=== PATIENT | female | born 1975 | race Hispanic/Latino ===

== ENCOUNTER → 2019-05-24 | Day surgery (SDC) | payer BC ==
[2019-05-23 15:19] LABS: BASOPHILS % 0.5 % (0.0-1.0); EOSINOPHILS # (AUTO) 0.5 (0.0-0.4); EOSINOPHILS % 5.8 % (0.0-6.0); HEMATOCRIT 38.2 % (34.2-44.1); HEMOGLOBIN 12.2 g/dL (12.0-16.0); LYMPHOCYTES # (AUTO) 1.8 (1.0-3.2); LYMPHOCYTES % 20.7 % (18.0-39.1); MEAN CORPUSCULAR HEMOGLOBIN 26.9 pg (28-32); MEAN CORPUSCULAR HGB CONC 31.9 g/dL (31-35); MEAN CORPUSCULAR VOLUME 84.1 fL (81-99); MONOCYTES # (AUTO) 0.6 (0.2-0.8); MONOCYTES % 6.6 % (4.4-11.3); NEUTROPHILS # (AUTO) 5.6 (2.1-6.9); NEUTROPHILS % 66.2 % (38.7-80.0); PLATELET COUNT 354 x10e3/uL (140-360); RED BLOOD COUNT 4.54 x10e6/uL (3.6-5.1); RED CELL DISTRIBUTION WIDTH 13.2 % (11.7-14.4)
[2019-05-23 15:29] LABS: INR 0.92; PROTHROMBIN TIME 12.8 seconds (11.9-14.5)
[2019-05-23 15:30] LABS: PARTIAL THROMBOPLASTIN TIME 31.2 seconds (23.8-35.5)
[2019-05-23 15:38] LABS: ALANINE AMINOTRANSFERASE 9 IU/L (0-55); ALBUMIN/GLOBULIN RATIO 1.2 (0.8-2.0); ALKALINE PHOSPHATASE 73 IU/L (40-150); ANION GAP 15.6 mmol/L (8-16); BLOOD UREA NITROGEN 9 mg/dL (7-26); BUN/CREATININE RATIO 16 (6-25); CALCIUM 9.7 mg/dL (8.4-10.2); CARBON DIOXIDE 24 mmol/L (22-29); CHLORIDE 103 mmol/L (98-107); CREATININE, SERUM 0.58 mg/dL (0.57-1.11); EST GLOMERULAR FILTRATION RATE > 60 ML/MIN (60-); GLUCOSE 82 mg/dL (74-118); POTASSIUM 3.6 mmol/L (3.5-5.1); SODIUM 139 mmol/L (136-145)
[~2019-05-24] MED LIST: FENTANYL CITRATE/PF 100MCG/2 ML INJ ONE; GLUCAGON FOR INJ 1 MG VIAL ONE; HYOSCYAMINE 0.125 MG TAB ONE; LACTOSE; LIDOCAINE HCL 2% LOCAL INJ 5 ML SDV VIAL INJ ONE; METFORMIN HCL850 MG PO; MIDAZOLAM HCL 2 MG/2 ML VIAL ONE; PROPOFOL IV EMULSION 10 MG/ML 50 ML VIAL ONE; RIFAXIMIN; TRULICITY0.75 MG/0. SQ; Z.0.ALDACTONE50 MG; Z.0.LASIX20 MG; Z.0.PROTONIX40 MG; Z.0.PROZAC20 MG; Z.0.VITAMIN E1000 UN; [UNRECOGNIZED DRUG - OTHER]
--- OUTSIDE RECORDS SUMMARY | 2019-05-24 06:23 | XMS REPORT ---
Author [facility] Address Unknown Phone Unavailable Care Team Providers Care Bed And Breakfast Cook Name Role Phone Unavailable Unavailable Payers Payer Name Policy Type Policy Number Effective Date Expiration Date Problems This patient has no known problems. Allergies, Adverse Reactions, Alerts Allergy Name Allergy Type Status Severity Reaction(s) Onset Date Inactive Date Treating Clinician Comments levofloxacin DA Active SV 2017-04-23 00:00:00 nitrofurantoin DA Active U 2016-10-09 00:00:00 Medications This patient has no known medications. Encounters Start Date/Time End Date/Time Encounter Type Admission Type [facility]ending [facility] Facility Care Department Encounter ID 2019-03-08 08:57:00 2019-03-08 08:57:00 Emergency E [facility] [id number] 2018-09-25 18:33:00 2018-09-25 18:33:00 Emergency E [facility] MED [id number] 2018-08-07 22:32:00 2018-08-07 22:32:00 Emergency E [facility] [id number] 2018-02-14 00:00:00 2018-02-14 00:00:00 Outpatient [facility] [id number] 2018-02-10 00:00:00 2018-02-10 00:00:00 Outpatient [facility] [id number] 2018-02-10 00:00:00 2018-02-10 00:00:00 Outpatient [facility] [id number] 2018-02-10 00:00:00 2018-02-10 00:00:00 Outpatient [facility] [id number] 2018-02-06 00:00:00 2018-02-06 00:00:00 Outpatient [facility] [id number] 2018-01-09 00:00:00 2018-01-09 00:00:00 Outpatient [facility] [id number] 2017-12-29 00:00:00 2017-12-29 00:00:00 Outpatient [facility] [id number] 2017-12-29 00:00:00 2017-12-29 00:00:00 Outpatient [facility] [id number] 2017-12-28 00:00:00 2017-12-28 00:00:00 Outpatient [facility] [id number] 2017-12-14 00:00:00 2017-12-14 00:00:00 Outpatient [facility] [id number] 2017-11-25 00:00:00 2017-11-25 00:00:00 Outpatient [facility] [id number] 2017-11-16 13:11:28 2017-11-16 13:11:28 Outpatient [facility] [id number] 2017-11-16 13:11:05 2017-11-16 13:11:05 Outpatient [facility] [id number] 2017-11-16 13:10:42 2017-11-16 13:10:42 Outpatient [facility] [id number] 2017-11-10 00:00:00 2017-11-10 00:00:00 Outpatient [facility] [id number] 2017-11-08 15:14:02 2017-11-08 15:14:02 Outpatient [facility] [id number] 2017-11-08 13:58:49 2017-11-08 13:58:49 Outpatient [facility] [id number] 2017-10-28 00:00:00 2017-10-28 00:00:00 Outpatient [facility] [id number] 2017-10-27 00:00:00 2017-10-27 00:00:00 Outpatient [facility] [id number] 2017-10-19 08:58:08 2017-10-19 08:58:08 Outpatient [facility] [id number] 2017-10-11 07:58:05 2017-10-11 07:58:05 Outpatient [facility] [id number] 2017-10-07 00:00:00 2017-10-07 00:00:00 Outpatient [facility] [id number] 2017-10-03 00:00:00 2017-10-03 00:00:00 Outpatient [facility] [id number] 2017-09-30 00:00:00 2017-09-30 00:00:00 Outpatient [facility] [id number] 2017-09-30 00:00:00 2017-09-30 00:00:00 Outpatient [facility] [id number] 2017-09-16 00:00:00 2017-09-16 00:00:00 Outpatient [facility] [id number] 2017-09-08 00:00:00 2017-09-08 00:00:00 Outpatient [facility] [id number] 2017-08-24 00:00:00 2017-08-24 00:00:00 Outpatient [facility] [id number] 2017-08-12 13:11:29 2017-08-12 13:11:29 Outpatient [facility] [id number] 2017-08-05 08:40:18 2017-08-05 08:40:18 Outpatient [facility] [id number] 2017-08-05 08:40:12 2017-08-05 08:40:12 Outpatient [facility] [id number] 2017-08-04 14:40:29 2017-08-04 14:40:29 Outpatient [facility] [id number] 2017-07-20 00:00:00 2017-07-20 00:00:00 Outpatient [facility] [id number] 2017-07-19 14:40:27 2017-07-19 14:40:27 Outpatient [facility] [id number] 2017-07-14 09:49:26 2017-07-14 09:49:26 Outpatient [facility] [id number] 2017-07-04 08:38:42 2017-07-04 08:38:42 Outpatient [facility] [id number] 2017-06-27 00:00:00 2017-06-27 00:00:00 Outpatient [facility] [id number] 2017-05-26 14:39:22 2017-05-26 14:39:22 Outpatient [facility] [id number] 2017-05-10 00:00:00 2017-05-10 00:00:00 Outpatient [facility] [id number] 2017-05-04 13:13:03 2017-05-04 13:13:03 Outpatient [facility] [id number] 2017-03-11 14:24:53 2017-03-11 14:24:53 Outpatient [facility] [id number] 2017-03-07 00:00:00 2017-03-07 00:00:00 Outpatient [facility] [id number] 2017-03-04 00:00:00 2017-03-04 00:00:00 Outpatient [facility] [id number] 2017-03-03 08:00:13 2017-03-03 08:00:13 Outpatient [facility] [id number] 2017-02-25 14:52:03 2017-02-25 14:52:03 Outpatient [facility] [id number] 2017-02-17 00:00:00 2017-02-17 00:00:00 Outpatient [facility] [id number] 2017-02-04 08:28:51 2017-02-04 08:28:51 Outpatient [facility] [id number] 2017-02-04 08:28:47 2017-02-04 08:28:47 Outpatient [facility] [id number] 2017-02-03 07:46:06 2017-02-03 07:46:06 Outpatient [facility] [id number] 2017-01-20 09:40:42 2017-01-20 09:40:42 Outpatient [facility] [id number] 2017-01-20 00:00:00 2017-01-20 00:00:00 Outpatient [facility] [id number] 2017-01-07 00:00:00 2017-01-07 00:00:00 Outpatient [facility] [id number] Results Test Description Test Time Test Comments Text Results Atomic Results Result Comments ANTINUCLEAR ANTIBODIES TITER 2019-03-27 14:08:00 SHAE SCREEN (test code=ANASCR) Negative () Negative <1:80 Borderline 1:80 Positive >1:80Performed At: [facility] [address] [id number] Dwayne Maria MD Ph:[phone] ACUTE HEPATITIS [id number] 14:08:00* Test Item Value Reference Range Comments AB HEPATITIS A IGM (test code=HAVMAB) NON REACTIVE INDEX NON REACT. AG HEPATITIS B SURFACE (test code=HBSAG) NON REACTIVE INDEX NonReactive AB HEPATITIS B CORE IGM (test code=HBCMAB) NON REACTIVE INDEX NON REACT. AB HEPATITIS C (test code=HCVAB) NON REACTIVE INDEX NON REACT. AB [id number] 14:08:00* Test Item Value Reference Range Comments AB ANTI-MITOCHONDRIAL (test code=MITOAB) AB ANTI-SMOOTH [id number] 14:08:00* Test Item Value Reference Range Comments AB ANTI-SMOOTH MUSCLE (test code=SMOOTHAB) 5 Units 0-19 Negative 0 - 19 Weak positive 20 - 30 Moderate to strong positive >30 Actin Antibodies are found in 52-85% of patients with autoimmune hepatitis or chronic active hepatitis and in 22% of patients with primary biliary cirrhosis. ANTINUCLEAR ANTIBODIES [id number] 14:08:00* Test Item Value Reference Range Comments SHAE SCREEN (test code=ANASCR) Negative () Negative <1:80 Borderline 1:80 Positive >1:80Performed At: [facility] [address] [id number] Dwayne Maria MD Ph:[phone] ACUTE HEPATITIS [id number] 14:08:00* Test Item Value Reference Range Comments AB HEPATITIS A IGM (test code=HAVMAB) NON REACTIVE INDEX NON REACT. AG HEPATITIS B SURFACE (test code=HBSAG) NON REACTIVE INDEX NonReactive AB HEPATITIS B CORE IGM (test code=HBCMAB) NON REACTIVE INDEX NON REACT. AB HEPATITIS C (test code=HCVAB) NON REACTIVE INDEX NON REACT. AB [id number] 14:08:00* Test Item Value Reference Range Comments AB ANTI-MITOCHONDRIAL (test code=MITOAB) <20.0 Units 0.0-20.0 Negative 0.0 - 20.0 Equivocal 20.1 - 24.9 Positive >24.9Mitochondrial (M2) Antibodies are found in 90-96% ofpatients with primary biliary cirrhosis.Performed At: [facility] [id number] Robb MD Ph:[phone] AB ANTI-SMOOTH [id number] 14:08:00* Test Item Value Reference Range Comments AB ANTI-SMOOTH MUSCLE (test code=SMOOTHAB) 5 Units 0-19 Negative 0 - 19 Weak positive 20 - 30 Moderate to strong positive >30 Actin Antibodies are found in 52-85% of patients with autoimmune hepatitis or chronic active hepatitis and in 22% of patients with primary biliary cirrhosis. [id number] 12:07:00* Test Item Value Reference Range Comments CERULOPLASMIN (test code=CER) 43.9 mg/dL 19.0-39.0 Performed At: [facility] [id number] [facility] [address] [place], [place] [id number] CN MD Ph:[phone] ANTINUCLEAR ANTIBODIES [id number] 09:08:00* Test Item Value Reference Range Comments SHAE SCREEN (test code=ANASCR) Negative () Negative <1:80 Borderline 1:80 Positive >1:80Performed At: [facility] [address] [place] [id number] Dwayne Maria MD Ph:[phone] ACUTE HEPATITIS [id number] 09:08:00* Test Item Value Reference Range Comments AB HEPATITIS A IGM (test code=HAVMAB) NON REACTIVE INDEX NON REACT. AG HEPATITIS B SURFACE (test code=HBSAG) NON REACTIVE INDEX NonReactive AB HEPATITIS B CORE IGM (test code=HBCMAB) NON REACTIVE INDEX NON REACT. AB HEPATITIS C (test code=HCVAB) NON REACTIVE INDEX NON REACT. AB [id number] 09:08:00* Test Item Value Reference Range Comments AB ANTI-MITOCHONDRIAL (test code=MITOAB) AB ANTI-SMOOTH [id number] 09:08:00* Test Item Value Reference Range Comments AB ANTI-SMOOTH MUSCLE (test code=SMOOTHAB) [id number] 18:36:00* Test Item Value Reference Range Comments GLUBED (test code=GLUBED) 159 MG/DL 70-110 Performed by certified centrifuge separator operator at [facility] [id number] 18:36:00* Test Item Value Reference Range Comments GLUBED (test code=GLUBED) 165 MG/DL 70-110 Performed by certified centrifuge separator operator at [facility] BASIC METABOLIC [id number] 04:18:00* Test Item Value Reference Range Comments SODIUM (test code=NA) 135 mEq/L 134-147 POTASSIUM (test code=K) 3.6 mEq/L 3.4-5.0 CHLORIDE (test code=CL) 102 mEq/L 100-108 CARBON DIOXIDE (test code=CO2) 27 mEq/L 21-33 ANION GAP (test code=GAP) 10 0-20 GLUCOSE (test code=GLU) 151 mg/dL 70-110 BLOOD UREA NITROGEN (test code=BUN) 13 mg/dL 7-18 GLOMERULAR FILTRATION RATE (test code=GFR) 110.2 95-105 Units of measure=ml/min/1.73 m2 CREATININE (test code=CREAT) 0.6 mg/dL 0.6-1.3 CALCIUM (test code=CA) 9.1 mg/dL 8.0-10.5 CBC W/AUTO [id number] 04:09:00* Test Item Value Reference Range Comments WHITE BLOOD CELL (test code=WBC) 10.33 x10 3/uL 4.5-11.0 RED BLOOD CELL (test code=RBC) 4.57 x10 6/uL 3.54-5.02 HEMOGLOBIN (test code=HGB) 12.5 g/dL 11.0-15.0 HEMATOCRIT (test code=HCT) 39.8 % 33.0-45.0 MEAN CELL VOLUME (test code=MCV) 87.1 fL 81.0-99.0 MEAN CELL HGB (test code=MCH) 27.4 pg 27.0-33.0 MEAN CELL HGB CONCETRATION (test code=MCHC) 31.4 g/dL 33.0-37.0 RED CELL DISTRIBUTION WIDTH CV (test code=RDW) 12.7 % 11.5-14.5 RED CELL DISTRIBUTION WIDTH SD (test code=RDW-SD) 40.0 fL 37.0-54.0 PLATELET COUNT (test code=PLT) 465 x10 3/uL 150-400 MEAN PLATELET VOLUME (test code=MPV) 9.6 fL 7.0-9.0 NEUTROPHIL % (test code=NT%) 73.5 % 56.0-77.0 IMMATURE GRANULOCYTE % (test code=IG%) 0.3 % 0.0-2.0 LYMPHOCYTE % (test code=LY%) 13.3 % 14.0-32.0 MONOCYTE % (test code=MO%) 8.4 % 4.8-9.0 EOSINOPHIL % (test code=EO%) 3.9 % 0.3-3.7 BASOPHIL % (test code=BA%) 0.6 % 0.0-2.0 NUCLEATED RBC % (test code=NRBC%) 0.0 % 0-0 NEUTROPHIL # (test code=NT#) 7.60 x10 3/uL 2.0-7.6 IMMATURE GRANULOCYTE # (test code=IG#) 0.03 x10 3/uL 0.00-0.03 LYMPHOCYTE # (test code=LY#) 1.37 x10 3/uL 1.0-3.8 MONOCYTE # (test code=MO#) 0.87 x10 3/uL 0.1-0.8 EOSINOPHIL # (test code=EO#) 0.40 x10 3/uL 0.0-0.2 BASOPHIL # (test code=BA#) 0.06 x10 3/uL 0.0-0.2 NUCLEATED RBC # (test code=NRBC#) 0.00 x10 3/uL 0.0-0.1 MANUAL DIFF REQUIRED (test code=MDIFF) NO [id number] 21:34:00* Test Item Value Reference Range Comments GLUBED (test code=GLUBED) 205 MG/DL 70-110 Performed by certified centrifuge separator operator at [facility] [id number] 16:30:00* Test Item Value Reference Range Comments GLUBED (test code=GLUBED) 138 MG/DL 70-110 Performed by certified centrifuge separator operator at [facility] [id number] 13:36:00* Test Item Value Reference Range Comments GLUBED (test code=GLUBED) 212 MG/DL 70-110 Performed by certified centrifuge separator operator at [facility] - MRI ABDOMEN W/O [id number] 12:36:00 FAX: Klever Pantoja MD [phone] [place]: St: ADM FAX: Tremayne Wong MD [phone] Name: AUSTYN MERA [facility] : 1975 Age/S: 43/F [address] [place] [address] Unit #: [id number] Loc: [place] [address] Phys: Tremayne Barlow MD Acct: [id number] Dis Date: Status: ADM IN PHONE #: [phone] Exam Date: 03/22/2019 1107 FAX #: [phone] Reason: prominent cbd, chronic elevation of lfts, s[place] EXAMS: CPT CODE: [id number] MRI ABDOMEN W/O CON 11400 MRCP: HISTORY: Prominent common bile duct. Previous cholecystectomy. COMPARISON EXAMS: Abdominal pelvic CT scan of 1 05/16/2018. Abdominal ultrasound of 03/21/2019. TECHNIQUE: T1 and T2-weighted images were obtained of the abdomen and pelvis in coronal, axial and sagittal planes. 3-D maximal intensity projection reconstructi ons were generated of the bile ducts. FINDINGS: The common bile du ct is normal measuring 7 mm. No intraluminal filling defects identified. T here is normal tapering to the level of the ampulla. The gal lbladder is absent. Dephasing artifact is identified from the clips at the gallbladder fossa, and one along the posterior-inferior edge of the right lobe of the liver. No focal hepatic lesions. The spleen, pancreas, adrenal glands, and kidneys are unremarkable. No evidence of peripancrea tic edema. Visualized marrow pattern is within normal limits. IMPRESSION: 1. Previous cholecystectomy. 2. 7 mm com mon bile duct is normal for a postcholecystectomy patient. 3. No evidenc e of choledocholithiasis. 4. No acute abnormalities identified. SL:01 at 1236 Reported and signed by: Alexander Lopez M.D. CC: Klever Berkowitz MD; Tremayne Barlow MD Technologist: Seven Gomes RT(R)(CT)(MR) Trnscrd Date/Time/By: ([id number]) : By: Leonardo.DEONDRE/Leonardo.DEONDRE Orig Print D/T: S: 03/22/2019 (4765) PAGE 1 Signed Report ANTINUCLEAR ANTIBODIES [id number] 10:54:00* Test Item Value Reference Range Comments SHAE SCREEN (test code=ANASCR) ACUTE HEPATITIS [id number] 10:54:00* Test Item Value Reference Range Comments AB HEPATITIS A IGM (test code=HAVMAB) NON REACTIVE INDEX NON REACT. AG HEPATITIS B SURFACE (test code=HBSAG) NON REACTIVE INDEX NonReactive AB HEPATITIS B CORE IGM (test code=HBCMAB) NON REACTIVE INDEX NON REACT. AB HEPATITIS C (test code=HCVAB) NON REACTIVE INDEX NON REACT. AB [id number] 10:54:00* Test Item Value Reference Range Comments AB ANTI-MITOCHONDRIAL (test code=MITOAB) AB ANTI-SMOOTH [id number] 10:54:00* Test Item Value Reference Range Comments AB ANTI-SMOOTH MUSCLE (test code=SMOOTHAB) BASIC METABOLIC [id number] 10:34:00* Test Item Value Reference Range Comments SODIUM (test code=NA) 136 mEq/L 134-147 POTASSIUM (test code=K) 3.8 mEq/L 3.4-5.0 CHLORIDE (test code=CL) 101 mEq/L 100-108 CARBON DIOXIDE (test code=CO2) 27 mEq/L 21-33 ANION GAP (test code=GAP) 12 0-20 GLUCOSE (test code=GLU) 156 mg/dL 70-110 BLOOD UREA NITROGEN (test code=BUN) 17 mg/dL 7-18 GLOMERULAR FILTRATION RATE (test code=GFR) 136.0 95-105 Units of measure=ml/min/1.73 m2 CREATININE (test code=CREAT) 0.5 mg/dL 0.6-1.3 CALCIUM (test code=CA) 8.8 mg/dL 8.0-10.5 [id number] 10:34:00* Test Item Value Reference Range Comments FERRITIN (test code=MINO) 25.8 ng/mL 11.0-306.8 ANTINUCLEAR ANTIBODIES [id number] 10:18:00* Test Item Value Reference Range Comments SHAE SCREEN (test code=ANASCR) ACUTE HEPATITIS [id number] 10:18:00* Test Item Value Reference Range Comments AB HEPATITIS A IGM (test code=HAVMAB) INDEX NON REACT. AG HEPATITIS B SURFACE (test code=HBSAG) NON REACTIVE INDEX NonReactive AB HEPATITIS B CORE IGM (test code=HBCMAB) INDEX NON REACT. AB HEPATITIS C (test code=HCVAB) INDEX NON REACT. AB [id number] 10:18:00* Test Item Value Reference Range Comments AB ANTI-MITOCHONDRIAL (test code=MITOAB) AB ANTI-SMOOTH [id number] 10:18:00* Test Item Value Reference Range Comments AB ANTI-SMOOTH MUSCLE (test code=SMOOTHAB) [id number] 10:15:00* Test Item Value Reference Range Comments GLUBED (test code=GLUBED) 154 MG/DL 70-110 Performed by certified centrifuge separator operator at [facility] CBC W/AUTO [id number] 08:17:00* Test Item Value Reference Range Comments WHITE BLOOD CELL (test code=WBC) 9.06 x10 3/uL 4.5-11.0 RED BLOOD CELL (test code=RBC) 4.35 x10 6/uL 3.54-5.02 HEMOGLOBIN (test code=HGB) 12.1 g/dL 11.0-15.0 HEMATOCRIT (test code=HCT) 37.4 % 33.0-45.0 MEAN CELL VOLUME (test code=MCV) 86.0 fL 81.0-99.0 MEAN CELL HGB (test code=MCH) 27.8 pg 27.0-33.0 MEAN CELL HGB CONCETRATION (test code=MCHC) 32.4 g/dL 33.0-37.0 RED CELL DISTRIBUTION WIDTH CV (test code=RDW) 12.7 % 11.5-14.5 RED CELL DISTRIBUTION WIDTH SD (test code=RDW-SD) 39.6 fL 37.0-54.0 PLATELET COUNT (test code=PLT) 440 x10 3/uL 150-400 MEAN PLATELET VOLUME (test code=MPV) 9.9 fL 7.0-9.0 NEUTROPHIL % (test code=NT%) 68.3 % 56.0-77.0 IMMATURE GRANULOCYTE % (test code=IG%) 0.4 % 0.0-2.0 LYMPHOCYTE % (test code=LY%) 19.6 % 14.0-32.0 MONOCYTE % (test code=MO%) 7.2 % 4.8-9.0 EOSINOPHIL % (test code=EO%) 4.1 % 0.3-3.7 BASOPHIL % (test code=BA%) 0.4 % 0.0-2.0 NUCLEATED RBC % (test code=NRBC%) 0.0 % 0-0 NEUTROPHIL # (test code=NT#) 6.18 x10 3/uL 2.0-7.6 IMMATURE GRANULOCYTE # (test code=IG#) 0.04 x10 3/uL 0.00-0.03 LYMPHOCYTE # (test code=LY#) 1.78 x10 3/uL 1.0-3.8 MONOCYTE # (test code=MO#) 0.65 x10 3/uL 0.1-0.8 EOSINOPHIL # (test code=EO#) 0.37 x10 3/uL 0.0-0.2 BASOPHIL # (test code=BA#) 0.04 x10 3/uL 0.0-0.2 NUCLEATED RBC # (test code=NRBC#) 0.00 x10 3/uL 0.0-0.1 MANUAL DIFF REQUIRED (test code=MDIFF) NO [id number] 03:44:00* Test Item Value Reference Range Comments GLUBED (test code=GLUBED) 184 MG/DL 70-110 Performed by certified centrifuge separator operator at [facility] [id number] 17:38:00* Test Item Value Reference Range Comments GLUBED (test code=GLUBED) 162 MG/DL 70-110 Performed by certified centrifuge separator operator at [facility] [id number] 13:17:00* Test Item Value Reference Range Comments GLUBED (test code=GLUBED) 183 MG/DL 70-110 Performed by certified centrifuge separator operator at [facility] - US ABDOMEN [id number] 10:14:00 Name: AUSTYN MERA [facility] : 1975 Age/S: 43 / F [address] [place] [address] Unit #: [id number] Loc: [place] [address] Phys: Alonso Perez MD Acct: [id number] Dis Date: Status: ADM IN PHONE #: [phone] Exam Date: 03/21/2019 0836 FAX #: [phone] Reason: sob, eval for ascites EXAMS: CPT CODE: [id number] US ABDOMEN COMPLETE 51507 - US ABDOMEN COMPLETE: 03/21/2019 3:46 PM CLINICAL HISTORY: Shortness of breath, abdominal distention. STUDY: Complete ultrasound of abdomen. COMPARISON: 03/16/2019. FINDINGS: Liver: Liver is enlarged with increased parenchymal echogenicity. No mass or intrahepatic biliary ductal dilation. Portal vein is patent with directional flow into the liver. Gallbladder: Surgically absent. Common bile duct measures 7 mm diameter. Pancreas: Obscured by artifact from overlying bowel gas. Spleen: Normal. 13.4 cm. Kidneys: No pelvicalyceal dilatation. Right kidney measuring 11.6 cm in length; left kidney measuring 11.6 cm in length. Aorta Inferior vena cava: Portions of aorta obscured by artifact from overlying bowel gas. Visualized portions appear normal. Ascites: None. IMPRESSION: 1. Hepatic steatosis and hepatomegaly. 2. Prominent common bile duct, possibly on the basis of post cholecystectomy state. No visualization of an obstructing mass or ductal stone. at 1014 Reported and signed by: Edison Oswald M.D. CC: Klever Berkowitz MD; Alonso Perez Technologist: Jennifer Colbert RDMS(A)(OB) Trnakb Date/Time: 03/21/2019 (1014) [id number] Orig Print D/T: S: 03/21/2019 (1017) Probe: PAGE 1 Signed Report [id number] 09:07:00* Test Item Value Reference Range Comments GLUBED (test code=GLUBED) 176 MG/DL 70-110 Performed by certified centrifuge separator operator at [facility] BASIC METABOLIC [id number] 08:34:00* Test Item Value Reference Range Comments SODIUM (test code=NA) 139 mEq/L 134-147 POTASSIUM (test code=K) 3.4 mEq/L 3.4-5.0 CHLORIDE (test code=CL) 105 mEq/L 100-108 CARBON DIOXIDE (test code=CO2) 28 mEq/L 21-33 ANION GAP (test code=GAP) 9 0-20 GLUCOSE (test code=GLU) 165 mg/dL 70-110 BLOOD UREA NITROGEN (test code=BUN) 13 mg/dL 7-18 GLOMERULAR FILTRATION RATE (test code=GFR) 110.2 95-105 Units of measure=ml/min/1.73 m2 CREATININE (test code=CREAT) 0.6 mg/dL 0.6-1.3 CALCIUM (test code=CA) 9.1 mg/dL 8.0-10.5 CBC W/AUTO [id number] 07:44:00* Test Item Value Reference Range Comments WHITE BLOOD CELL (test code=WBC) 7.84 x10 3/uL 4.5-11.0 RED BLOOD CELL (test code=RBC) 4.34 x10 6/uL 3.54-5.02 HEMOGLOBIN (test code=HGB) 11.8 g/dL 11.0-15.0 HEMATOCRIT (test code=HCT) 37.8 % 33.0-45.0 MEAN CELL VOLUME (test code=MCV) 87.1 fL 81.0-99.0 MEAN CELL HGB (test code=MCH) 27.2 pg 27.0-33.0 MEAN CELL HGB CONCETRATION (test code=MCHC) 31.2 g/dL 33.0-37.0 RED CELL DISTRIBUTION WIDTH CV (test code=RDW) 12.6 % 11.5-14.5 RED CELL DISTRIBUTION WIDTH SD (test code=RDW-SD) 39.8 fL 37.0-54.0 PLATELET COUNT (test code=PLT) 422 x10 3/uL 150-400 MEAN PLATELET VOLUME (test code=MPV) 10.4 fL 7.0-9.0 NEUTROPHIL % (test code=NT%) 64.2 % 56.0-77.0 IMMATURE GRANULOCYTE % (test code=IG%) 0.5 % 0.0-2.0 LYMPHOCYTE % (test code=LY%) 20.9 % 14.0-32.0 MONOCYTE % (test code=MO%) 9.4 % 4.8-9.0 EOSINOPHIL % (test code=EO%) 4.6 % 0.3-3.7 BASOPHIL % (test code=BA%) 0.4 % 0.0-2.0 NUCLEATED RBC % (test code=NRBC%) 0.0 % 0-0 NEUTROPHIL # (test code=NT#) 5.03 x10 3/uL 2.0-7.6 IMMATURE GRANULOCYTE # (test code=IG#) 0.04 x10 3/uL 0.00-0.03 LYMPHOCYTE # (test code=LY#) 1.64 x10 3/uL 1.0-3.8 MONOCYTE # (test code=MO#) 0.74 x10 3/uL 0.1-0.8 EOSINOPHIL # (test code=EO#) 0.36 x10 3/uL 0.0-0.2 BASOPHIL # (test code=BA#) 0.03 x10 3/uL 0.0-0.2 NUCLEATED RBC # (test code=NRBC#) 0.00 x10 3/uL 0.0-0.1 MANUAL DIFF REQUIRED (test code=MDIFF) NO [id number] 06:05:00* Test Item Value Reference Range Comments GLUBED (test code=GLUBED) 132 MG/DL 70-110 Performed by certified centrifuge separator operator at [facility] [id number] 20:41:00* Test Item Value Reference Range Comments GLUBED (test code=GLUBED) 321 MG/DL 70-110 Performed by certified centrifuge separator operator at [facility] - XR CHEST 1 [id number] 19:41:00 FAX: Klever Pantoja MD [phone] [place]: St: ADM FAX: Alonso Perez MD [phone] Name: AUSTYN MERA [facility] : 1975 Age/S: 43/F [address] [place] [address] Unit #: [id number] Loc: [address] [address] Phys: Alonso Perez MD Acct: [id number] Dis Date: Status: ADM IN PHONE #: [phone] Exam Date: 03/20/20191929 FAX #: [phone] Reason: sob EXAMS: CPT CODE: [id number] XR CHEST 1 V 60801 Clinical Indication: sob Comparison: 03/16/2019 FINDINGS: The frontal chest radiograph shows normal lung volumes. No interstitial or airspace opacities are seen. No pleural effusions are present. No pneumothorax is seen. The heart is normal in size. The trachea is midline. There are no clinically significant osseous abnormalities noted. IMPRESSION: No chest radiographic evidence of acute cardiopulmonary disease. SL: SUHAS at 1941 Reported and signed by: Fabien Whitaker M.D. CC: Klever Berkowitz MD; Alonso Perez Technologist: Jalen Barrow RT(R) Trnscrd Date/Time/By: 03/20/2019 (1940) : By: VeroLNV Orig Print D/T: S: 03/20/2019 (1943) PAGE 1 Signed Report [id number] 17:26:00* Test Item Value Reference Range Comments GLUBED (test code=GLUBED) 190 MG/DL 70-110 Performed by certified centrifuge separator operator at [facility] [id number] 16:49:00* Test Item Value Reference Range Comments GLUBED (test code=GLUBED) 152 MG/DL 70-110 Performed by certified centrifuge separator operator at [facility] [id number] 12:55:00* Test Item Value Reference Range Comments GLUBED (test code=GLUBED) 171 MG/DL 70-110 Performed by certified centrifuge separator operator at [facility] [id number] 08:07:00* Test Item Value Reference Range Comments GLUBED (test code=GLUBED) 193 MG/DL 70-110 Performed by certified centrifuge separator operator at [facility] CBC W/AUTO [id number] 07:52:00* Test Item Value Reference Range Comments WHITE BLOOD CELL (test code=WBC) 7.22 x10 3/uL 4.5-11.0 RED BLOOD CELL (test code=RBC) 4.03 x10 6/uL 3.54-5.02 HEMOGLOBIN (test code=HGB) 11.1 g/dL 11.0-15.0 HEMATOCRIT (test code=HCT) 34.9 % 33.0-45.0 MEAN CELL VOLUME (test code=MCV) 86.6 fL 81.0-99.0 MEAN CELL HGB (test code=MCH) 27.5 pg 27.0-33.0 MEAN CELL HGB CONCETRATION (test code=MCHC) 31.8 g/dL 33.0-37.0 RED CELL DISTRIBUTION WIDTH CV (test code=RDW) 12.6 % 11.5-14.5 RED CELL DISTRIBUTION WIDTH SD (test code=RDW-SD) 39.7 fL 37.0-54.0 PLATELET COUNT (test code=PLT) 440 x10 3/uL 150-400 MEAN PLATELET VOLUME (test code=MPV) 10.3 fL 7.0-9.0 NEUTROPHIL % (test code=NT%) 74.2 % 56.0-77.0 IMMATURE GRANULOCYTE % (test code=IG%) 0.6 % 0.0-2.0 LYMPHOCYTE % (test code=LY%) 15.2 % 14.0-32.0 MONOCYTE % (test code=MO%) 7.2 % 4.8-9.0 EOSINOPHIL % (test code=EO%) 2.4 % 0.3-3.7 BASOPHIL % (test code=BA%) 0.4 % 0.0-2.0 NUCLEATED RBC % (test code=NRBC%) 0.0 % 0-0 NEUTROPHIL # (test code=NT#) 5.36 x10 3/uL 2.0-7.6 IMMATURE GRANULOCYTE # (test code=IG#) 0.04 x10 3/uL 0.00-0.03 LYMPHOCYTE # (test code=LY#) 1.10 x10 3/uL 1.0-3.8 MONOCYTE # (test code=MO#) 0.52 x10 3/uL 0.1-0.8 EOSINOPHIL # (test code=EO#) 0.17 x10 3/uL 0.0-0.2 BASOPHIL # (test code=BA#) 0.03 x10 3/uL 0.0-0.2 NUCLEATED RBC # (test code=NRBC#) 0.00 x10 3/uL 0.0-0.1 MANUAL DIFF REQUIRED (test code=MDIFF) NO BASIC METABOLIC [id number] 07:35:00* Test Item Value Reference Range Comments SODIUM (test code=NA) 139 mEq/L 134-147 POTASSIUM (test code=K) 3.5 mEq/L 3.4-5.0 CHLORIDE (test code=CL) 106 mEq/L 100-108 CARBON DIOXIDE (test code=CO2) 26 mEq/L 21-33 ANION GAP (test code=GAP) 11 0-20 GLUCOSE (test code=GLU) 175 mg/dL 70-110 BLOOD UREA NITROGEN (test code=BUN) 10 mg/dL 7-18 GLOMERULAR FILTRATION RATE (test code=GFR) 110.2 95-105 Units of measure=ml/min/1.73 m2 CREATININE (test code=CREAT) 0.6 mg/dL 0.6-1.3 CALCIUM (test code=CA) 8.7 mg/dL 8.0-10.5 HEPATIC FUNCTION [id number] 07:35:00* Test Item Value Reference Range Comments TOTAL PROTEIN (test code=PROT) 6.8 g/dL 6.4-8.2 ALBUMIN (test code=ALB) 3.00 g/dL 3.4-5.0 BILIRUBIN TOTAL (test code=BILT) 0.4 MG/DL <1.5 BILIRUBIN DIRECT (test code=BILD) 0.10 MG/DL 0.0-0.30 BILIRUBIN INDIRECT (test code=BILIND) 0.30 MG/DL SGOT/AST (test code=AST) 151 IUnit/L 15-37 SGPT/ALT (test code=ALT) 274 IUnit/L 15-65 ALKALINE PHOSPHATASE TOTAL (test code=ALKP) 250 IUnit/L 20-125 [id number] 21:06:00* Test Item Value Reference Range Comments GLUBED (test code=GLUBED) 156 MG/DL 70-110 Performed by certified centrifuge separator operator at [facility] [id number] 17:35:00* Test Item Value Reference Range Comments GLUBED (test code=GLUBED) 214 MG/DL 70-110 Performed by certified centrifuge separator operator at [facility] [id number] 13:43:00* Test Item Value Reference Range Comments GLUBED (test code=GLUBED) 206 MG/DL 70-110 Performed by certified centrifuge separator operator at [facility] CBC W/AUTO [id number] 10:12:00* Test Item Value Reference Range Comments WHITE BLOOD CELL (test code=WBC) 6.14 x10 3/uL 4.5-11.0 RED BLOOD CELL (test code=RBC) 3.86 x10 6/uL 3.54-5.02 HEMOGLOBIN (test code=HGB) 10.7 g/dL 11.0-15.0 HEMATOCRIT (test code=HCT) 33.4 % 33.0-45.0 MEAN CELL VOLUME (test code=MCV) 86.5 fL 81.0-99.0 MEAN CELL HGB (test code=MCH) 27.7 pg 27.0-33.0 MEAN CELL HGB CONCETRATION (test code=MCHC) 32.0 g/dL 33.0-37.0 RED CELL DISTRIBUTION WIDTH CV (test code=RDW) 12.5 % 11.5-14.5 RED CELL DISTRIBUTION WIDTH SD (test code=RDW-SD) 39.7 fL 37.0-54.0 PLATELET COUNT (test code=PLT) 400 x10 3/uL 150-400 MEAN PLATELET VOLUME (test code=MPV) 10.8 fL 7.0-9.0 NEUTROPHIL % (test code=NT%) 64.1 % 56.0-77.0 IMMATURE GRANULOCYTE % (test code=IG%) 0.3 % 0.0-2.0 LYMPHOCYTE % (test code=LY%) 23.5 % 14.0-32.0 MONOCYTE % (test code=MO%) 8.1 % 4.8-9.0 EOSINOPHIL % (test code=EO%) 3.7 % 0.3-3.7 BASOPHIL % (test code=BA%) 0.3 % 0.0-2.0 NUCLEATED RBC % (test code=NRBC%) 0.0 % 0-0 NEUTROPHIL # (test code=NT#) 3.93 x10 3/uL 2.0-7.6 IMMATURE GRANULOCYTE # (test code=IG#) 0.02 x10 3/uL 0.00-0.03 LYMPHOCYTE # (test code=LY#) 1.44 x10 3/uL 1.0-3.8 MONOCYTE # (test code=MO#) 0.50 x10 3/uL 0.1-0.8 EOSINOPHIL # (test code=EO#) 0.23 x10 3/uL 0.0-0.2 BASOPHIL # (test code=BA#) 0.02 x10 3/uL 0.0-0.2 NUCLEATED RBC # (test code=NRBC#) 0.00 x10 3/uL 0.0-0.1 MANUAL DIFF REQUIRED (test code=MDIFF) NO BASIC METABOLIC [id number] 07:29:00* Test Item Value Reference Range Comments SODIUM (test code=NA) 136 mEq/L 134-147 POTASSIUM (test code=K) 3.7 mEq/L 3.4-5.0 CHLORIDE (test code=CL) 108 mEq/L 100-108 CARBON DIOXIDE (test code=CO2) 22 mEq/L 21-33 ANION GAP (test code=GAP) 10 0-20 GLUCOSE (test code=GLU) 193 mg/dL 70-110 BLOOD UREA NITROGEN (test code=BUN) 6 mg/dL 7-18 GLOMERULAR FILTRATION RATE (test code=GFR) 136.0 95-105 Units of measure=ml/min/1.73 m2 CREATININE (test code=CREAT) 0.5 mg/dL 0.6-1.3 CALCIUM (test code=CA) 8.3 mg/dL 8.0-10.5 [id number] 20:52:00* Test Item Value Reference Range Comments GLUBED (test code=GLUBED) 281 MG/DL 70-110 Performed by certified centrifuge separator operator at [facility] [id number] 17:20:00* Test Item Value Reference Range Comments GLUBED (test code=GLUBED) 209 MG/DL 70-110 Performed by certified centrifuge separator operator at [facility] [id number] 12:33:00* Test Item Value Reference Range Comments GLUBED (test code=GLUBED) 208 MG/DL 70-110 Performed by certified centrifuge separator operator at [facility] HGBA1C%2019-03-18 09:52:00* Test Item Value Reference Range Comments HGBA1C% (test code=HGBA1C%) 10.2 %A1C 4.8-6.0 BASIC METABOLIC [id number] 08:22:00* Test Item Value Reference Range Comments SODIUM (test code=NA) 139 mEq/L 134-147 POTASSIUM (test code=K) 3.6 mEq/L 3.4-5.0 CHLORIDE (test code=CL) 109 mEq/L 100-108 CARBON DIOXIDE (test code=CO2) 24 mEq/L 21-33 ANION GAP (test code=GAP) 10 0-20 GLUCOSE (test code=GLU) 175 mg/dL 70-110 BLOOD UREA NITROGEN (test code=BUN) 7 mg/dL 7-18 GLOMERULAR FILTRATION RATE (test code=GFR) 175.9 95-105 Units of measure=ml/min/1.73 m2 CREATININE (test code=CREAT) 0.4 mg/dL 0.6-1.3 CALCIUM (test code=CA) 8.2 mg/dL 8.0-10.5 LIPID PROFILE (CORONARY RISK)2019-03-18 08:22:00* Test Item Value Reference Range Comments TRIGLYCERIDES (test code=TRIG) 89 mg/dL 40-150 CHOLESTEROL (test code=CHOL) 146 mg/dL <200 CHOLESTEROL/HDL RATIO (test code=CHOLHDL) 3.40 RATIO 3.27-4.44 RISK ASSOCIATED WITH CHOL/HDL RATIOS: RISK MALE FEMALE1/2 AVERAGE 3.43 3.27AVERAGE 4.97 4.442X AVERAGE 9.55 7.053X AVERAGE 23.39 11.04 NOTE THAT THE REFERENCE VALUE IS RELATEDTO RISK LEVELS RECOMMENDED BY THE NATL.HEART, LUNG, AND BLOOD INST. HDL CHOLESTEROL (test code=HDL) 43.0 mg/dL 39-96 LIPOPROTEIN LDL (test code=LDL) 86 mg/dL 0-100 <100 [id number] NEAR OPTIMAL/ABOVE [id number] HIGH>RD=588 VERY HIGH*Guidelines provided by the National Cholesterol EducationProgram Adult Treatment Panel III CBC W/AUTO [id number] 08:16:00* Test Item Value Reference Range Comments WHITE BLOOD CELL (test code=WBC) 5.67 x10 3/uL 4.5-11.0 RED BLOOD CELL (test code=RBC) 4.04 x10 6/uL 3.54-5.02 HEMOGLOBIN (test code=HGB) 11.0 g/dL 11.0-15.0 HEMATOCRIT (test code=HCT) 35.0 % 33.0-45.0 MEAN CELL VOLUME (test code=MCV) 86.6 fL 81.0-99.0 MEAN CELL HGB (test code=MCH) 27.2 pg 27.0-33.0 MEAN CELL HGB CONCETRATION (test code=MCHC) 31.4 g/dL 33.0-37.0 RED CELL DISTRIBUTION WIDTH CV (test code=RDW) 12.3 % 11.5-14.5 RED CELL DISTRIBUTION WIDTH SD (test code=RDW-SD) 39.5 fL 37.0-54.0 PLATELET COUNT (test code=PLT) 387 x10 3/uL 150-400 MEAN PLATELET VOLUME (test code=MPV) 10.6 fL 7.0-9.0 NEUTROPHIL % (test code=NT%) 61.9 % 56.0-77.0 IMMATURE GRANULOCYTE % (test code=IG%) 0.5 % 0.0-2.0 LYMPHOCYTE % (test code=LY%) 25.2 % 14.0-32.0 MONOCYTE % (test code=MO%) 8.1 % 4.8-9.0 EOSINOPHIL % (test code=EO%) 3.9 % 0.3-3.7 BASOPHIL % (test code=BA%) 0.4 % 0.0-2.0 NUCLEATED RBC % (test code=NRBC%) 0.0 % 0-0 NEUTROPHIL # (test code=NT#) 3.51 x10 3/uL 2.0-7.6 IMMATURE GRANULOCYTE # (test code=IG#) 0.03 x10 3/uL 0.00-0.03 LYMPHOCYTE # (test code=LY#) 1.43 x10 3/uL 1.0-3.8 MONOCYTE # (test code=MO#) 0.46 x10 3/uL 0.1-0.8 EOSINOPHIL # (test code=EO#) 0.22 x10 3/uL 0.0-0.2 BASOPHIL # (test code=BA#) 0.02 x10 3/uL 0.0-0.2 NUCLEATED RBC # (test code=NRBC#) 0.00 x10 3/uL 0.0-0.1 MANUAL DIFF REQUIRED (test code=MDIFF) NO [id number] 07:15:00* Test Item Value Reference Range Comments GLUBED (test code=GLUBED) 200 MG/DL 70-110 Performed by certified centrifuge separator operator at [facility] [id number] 20:11:00* Test Item Value Reference Range Comments GLUBED (test code=GLUBED) 211 MG/DL 70-110 Performed by certified centrifuge separator operator at [facility] [id number] 16:33:00* Test Item Value Reference Range Comments GLUBED (test code=GLUBED) 242 MG/DL 70-110 Performed by certified centrifuge separator operator at [facility] [id number] 12:56:00* Test Item Value Reference Range Comments GLUBED (test code=GLUBED) 168 MG/DL 70-110 Performed by certified centrifuge separator operator at [facility] [id number] 06:10:00* Test Item Value Reference Range Comments GLUBED (test code=GLUBED) 173 MG/DL 70-110 Performed by certified centrifuge separator operator at [facility] [id number] 00:47:00* Test Item Value Reference Range Comments GLUBED (test code=GLUBED) 218 MG/DL 70-110 Performed by certified centrifuge separator operator at [facility] [id number] 20:04:00* Test Item Value Reference Range Comments GLUBED (test code=GLUBED) 157 MG/DL 70-110 Performed by certified centrifuge separator operator at [facility] SED RATE [id number] 19:55:00* Test Item Value Reference Range Comments SED RATE WESTERGREN (test code=SEDW) 52 mm/hr 0-20 C REACTIVE [id number] 18:44:00* Test Item Value Reference Range Comments C REACTIVE PROTEIN (test code=CRP) 24.6 MG/L 0.0-2.9 - CTA CHEST FOR [id number] 18:20:00 Name: AUSTYN MERA [facility] : 1975 Age/S: 43 / F [address] [place] [address] Blvd Unit #: [id number] Loc: [place] [address] Phys: Gene Barnett Acct: [id number] Dis Date: Status: REG ER PHONE #: [phone] Exam Date: 03/16/2019 1756 FAX #: [phone] Reason: chest pain, sob, elevated ddimer EXAMS: CPT CODE: [id number] [place] [address] EXAM: CTA CHEST WITH CONTRAST DATE: 03/16/2019 5:50 PM : 1975; Age: 43 years y/o Female INDICATION: chest pain, sob, elevated ddimer COMPARISON: None TECHNIQUE: Volumetric CT of the chest is acquired during pulmonary arterial phase following intravenous administration of contrast. Coronal and sagittal reconstructions were created. Three-dimensional or MIP reconstructions of the pulmonary arterial system were created at an independent workstation. IV Contrast: 100 mL Isovue DLP: 450 mGy-cm CT imaging performed at this location utilizes radiation dose optimization techniques which include one or more of the following: - Automated exposure control -Adjustment of the mA and/or kV according to patient size -Use of iterative reconstruction technique FINDINGS: Lymph Nodes: There is no mediastinal or hilar lymphadenopathy. No axillary lymphadenopathy. Heart, pericardium and aorta: The heart is normal in size. Thoracic aorta is normal.. Pulmonary emboli: None. No right heart strain. LUNGS: No cons olidation or lung mass. No pleural effusion. Upper abdomen: No a cute findings in visualized upper abdomen. Soft tissues: Normal. Bones: No acute abnormality. Age-related degenerative findings. IMPRESSION: 1. No pulmonary embolism. 2. No acute intrathoracic process. PAGE 1 Signed Report (CONTINUED) Name: AUSTYN MERA [facility] [place] : 1975 Age/S: 43 / F [address] [place] [address] Unit #: [id number] Loc: [place] [address] Phys: Gene Barnett DO Acct: [id number] Dis Date: Status: REG ER PHONE #: [phone] Exam Date: 03/16/2019 175 FAX #: [phone] Reason: chest pa in, sob, elevated ddimer EXAMS: CPT CODE: [id number] [place] [address] <Continued> SL: [id number] at 1820 Reported and signed by: Bernard Wasserman D.O. CC: Gene Barnett DO Technologist:RT Haylye(R) CTDI: DLP: Trnscb Date/Time: 03/16/2019 (1819) [email or web address] Orig Print D/T: S: 03/16/2019 (1822) PAGE 2 Signed Report - CT ABD PELVIS W/O CONT 2019-03-16 18:16:00 Name: AUSTYN MERA [facility] [place] : 1975 Age/S: 43 / F [address] [place] [address] Unit #: [id number] Loc: [place] [address] Phys: Gene Barnett DO Acct: [id number] Dis Date: Status: REG ER PHONE #: [phone] Exam Date: 03/16/2019 1748 FAX #: [phone] Reason: flank pain bilat, hematuria, eval for stones vs EXAMS: CPT CODE: [id number] CT ABD PELVIS W/O CONT 36323 CT ABDOMEN AND PELVIS WITHOUT CONTRAST INDICATION: flank pain bilat, hematuria, eval for stones vs pyelo. TECHNIQUE: Unenhanced CT imaging of the abdomen and pelvis with axial, coronal and sagittal reconstructions. CT imaging performed at this location utilizes radiation dose optimization technique which includes one or more of the followin) Automated exposure control; 2) Adjustment of the mA and/or kV according to patient's size; 3) Use of iterative reconstruction techniques. DLP (mGy-cm): 736 COMPARISONS: CT abdomen and pelvis 05/04/2015 FINDINGS: There is no acute osseous fracture or dislocation. There is no organized fluid collection or mass in the soft tissues. The aorta reveals no aneurysm or acute process. The inferior vena cava reveals no acute process. The lung bases reveal no acute process. There is hepatomegaly that measures 18.4 cm craniocaudal length. There is mild fatty infiltration of the liver. There is no focal hepatic mass or acute hepatic process. The gallbladder is surgically absent. The pancreas reveals no acute process. The spleen reveals no acute process. The adrenal glands reveal no acute process or mass. There is no acute renal process. The urinary bladder reveals no acute process. There is no acute reproductive structure abnormality. There are surgical changes of fallopian tube sterilization. There are several uterine fibroids, the largest extends from the left posterior uterine body and measures up to 6.1 cm. PAGE 1 Signed Report (CONTINUED) Name: AUSTYN MERA [facility] : 1975 Age/S: 43 / F [address] [place] [address] Unit #: [id number] Loc: [place] [address] Phys: Gene Barnett DO Acct: [id number] Dis Date: Status: REG ER PHONE #: [phone] Exam Date: 03/16/2019 1746 FAX #: [phone] Reason: flank pain bilat, hematuria, eval for stones vs EXAMS: CPT CODE: [id number] CT ABD PELVIS W/O CONT 30662 <Continued> There is no intra-abdominal free fluid. There is no intra-abdominal free gas. There is no lymphadenopathy. There are intact chronic surgical changes of ventral abdominal mesh herniorrhaphy in the supraumbilical region. There are surgical clips adjacent to the gastric antrum. There are surgical clips in the lower left abdomen and pelvis. There is no bowel obstruction. There is no bowel mucosal thickening or inflammation. There is no evidence of acute appendicitis. IMPRESSION: 1. No acute intra-abdominal process. 2. There is increased hepatomegaly. There is mild fatty infiltration of the liver. 3. There are several uterine fibroids present, the largest measures 6.1 cm. 4. Normal bilateral kidneys. 5. There is no evidence of acute appendicitis. 6. There are additional nonacute findings that are described above. at 1816 Reported and signed by: Perez Duarte D.O. CC: Gene Barnett DO Technologist:RT Hayley(R) CTDI: DLP: Trnscb Date/Time: 03/16/2019 (1815) [email or web address] Orig Print D/T: S: 03/16/2019 (1818) PAGE 2 Signed Report - XR CHEST 1 [id number] 17:43:00 FAX: Gene Barnett DO [phone] [place]: St: PRE Name: AUSTYN VALERO [facility] : [birth year] Age/S: 43/F [address] [place] [address] Blvd Unit #: [id number] Loc: [place] [address] Phys: Gene Barnett DO Acct: [id number] Dis Date: Status: PRE ER PHONE #: [phone] Exam Date: 03/16/2019 172 FAX #: [phone] Reason: reported chest pain EXAMS: CPT CODE: [id number] XR CHEST 1 V 63709 PROCEDURE: Chest, AP on at 1714 hours. INDICATION: Reported chest pain. Back pain for one week. COMPARISON: Chest radiographs dated 03/02/2018, 11/02. FINDINGS: Support tubes, catheters, devices: None. There are no visualized pleural effusions. The visualized portions of the lungs are clear with normal pulmonary vasculature. The mediastinal silhouette and selam appear normal. No evidence for an acute bony ab normality. IMPRESSION: 1. No evidence for an acute car diopulmonary process. 6 SL: [id number] at 0393 Reported and s igned by: Agus Barrow M.D. CC: Gene Barnett DO Technologist: RT Colin(R); RT Leslie(R)[facility] Date/Time/By: 03/16/2019 (8209) : By: [email or web address] Orig Print D/T: S: 03/16/2019 (9499) PAGE 1 Signed Report [id number] 17:32:00* Test Item Value Reference Range Comments D-DIMER (test code=DDIMER) 420 ng/mlFEU <=500 THROMBOSIS AND/OR PULMONARY EMBOLISM AND THE CLINICAL CUT- OFF VALUE FOR EXCLUSION (500 ng/mL FEU) OF THESE CONDITIONSIS VALIDATED BY THE PROJECT DEVELOPMENT COORDINATOR OF THE METHOD. A NEGATIVE D-DIMER RESULT WHEN COMBINED WITH A CLINICALASSESSMENT OF LOW PRETEST PROBABILITY HAS BEEN SHOWN TO HAVEA HIGH NEGATIVE PREDICTIVE VALUE OF DVT OR PE. D-DIMER VALUES >500 ng/mL FEU ARE NOT DIAGNOSTIC FOR DVT, PEor DIC WITHOUT OTHER CONFIRMATORY TESTS AND APPROPRIATECLINICAL EUALUATIONS. BASIC METABOLIC [id number] 17:31:00* Test Item Value Reference Range Comments SODIUM (test code=NA) 137 mEq/L 134-147 POTASSIUM (test code=K) 3.5 mEq/L 3.4-5.0 CHLORIDE (test code=CL) 104 mEq/L 100-108 CARBON DIOXIDE (test code=CO2) 28 mEq/L 21-33 ANION GAP (test code=GAP) 9 0-20 GLUCOSE (test code=GLU) 296 mg/dL 70-110 BLOOD UREA NITROGEN (test code=BUN) 7 mg/dL 7-18 GLOMERULAR FILTRATION RATE (test code=GFR) 79.0 95-105 Units of measure=ml/min/1.73 m2 CREATININE (test code=CREAT) 0.8 mg/dL 0.6-1.3 CALCIUM (test code=CA) 9.1 mg/dL 8.0-10.5 HCG SERUM [id number] 17:31:00* Test Item Value Reference Range Comments HCG SERUM QUAL (test code=HCGQL) SERUM NEGATIVE NEGATIVE UA RFLX MICR CULT IF [id number] 17:30:00* Test Item Value Reference Range Comments UA COLOR (test code=COLU) YELLOW YEL/STRAW UA APPEARANCE (test code=APPU) SL CLOUDY CLEAR UA GLUCOSE DIPSTICK (test code=DGLUU) 3+ NEGATIVE UA BILIRUBIN DIPSTICK (test code=BILU) NEGATIVE NEGATIVE UA KETONE DIPSTICK (test code=KETU) TRACE NEGATIVE UA SPECIFIC GRAVITY (test code=SGU) 1.036 1.005-1.030 UA BLOOD DIPSTICK (test code=KERRY) 2+ NEGATIVE UA PH DIPSTICK (test code=CORETTA) 5.0 5.0-7.0 UA PROTEIN DIPSTICK (test code=PROU) NEGATIVE NEGATIVE UA UROBILINIOGEN DIPSTICK (test code=URO) 0.2 mg/dL 0.2-1.0 UA NITRITE DIPSTICK (test code=CHARLEE) NEGATIVE NEGATIVE UA LEUKOCYTE ESTERASE DIPSTICK (test code=LEUU) 1+ NEGATIVE UA WBC (test code=WBCU) 21-50 WBC/HPF 0-3 UA RBC (test code=RBCU) 4-10 RBC/HPF 0-3 UA WBC NO REFLEX (test code=WBCUCL) 21-50 WBC/HPF 0-3 UA BACTERIA (test code=BACU) TRACE /HPF NONE SEEN UA SQUAMOUS CELLS (test code=SQU) 6-10 /HPF NONE SEEN UA MUCUS (test code=MUCU) TRACE /LPF NONE SEEN Indication for culture: Flank Pain Temperature > 100.4 FSpecimen Description: CLEAN CATCHBASIC METABOLIC [id number] 17:29:00* Test Item Value Reference Range Comments SODIUM (test code=NA) 137 mEq/L 134-147 POTASSIUM (test code=K) 3.5 mEq/L 3.4-5.0 CHLORIDE (test code=CL) 104 mEq/L 100-108 CARBON DIOXIDE (test code=CO2) 28 mEq/L 21-33 ANION GAP (test code=GAP) 9 0-20 GLUCOSE (test code=GLU) 296 mg/dL 70-110 BLOOD UREA NITROGEN (test code=BUN) 7 mg/dL 7-18 GLOMERULAR FILTRATION RATE (test code=GFR) 95-105 CREATININE (test code=CREAT) mg/dL 0.6-1.3 CALCIUM (test code=CA) 9.1 mg/dL 8.0-10.5 HCG SERUM [id number] 17:29:00* Test Item Value Reference Range Comments HCG SERUM QUAL (test code=HCGQL) SERUM NEGATIVE NEGATIVE BASIC METABOLIC [id number] 17:26:00* Test Item Value Reference Range Comments SODIUM (test code=NA) mEq/L 134-147 POTASSIUM (test code=K) mEq/L 3.4-5.0 CHLORIDE (test code=CL) mEq/L 100-108 CARBON DIOXIDE (test code=CO2) mEq/L 21-33 ANION GAP (test code=GAP) 0-20 GLUCOSE (test code=GLU) mg/dL 70-110 BLOOD UREA NITROGEN (test code=BUN) mg/dL 7-18 GLOMERULAR FILTRATION RATE (test code=GFR) 95-105 CREATININE (test code=CREAT) mg/dL 0.6-1.3 CALCIUM (test code=CA) mg/dL 8.0-10.5 HCG SERUM [id number] 17:26:00* Test Item Value Reference Range Comments HCG SERUM QUAL (test code=HCGQL) SERUM NEGATIVE NEGATIVE CBC W/AUTO [id number] 17:20:00* Test Item Value Reference Range Comments WHITE BLOOD CELL (test code=WBC) 9.90 x10 3/uL 4.5-11.0 RED BLOOD CELL (test code=RBC) 4.55 x10 6/uL 3.54-5.02 HEMOGLOBIN (test code=HGB) 12.7 g/dL 11.0-15.0 HEMATOCRIT (test code=HCT) 38.3 % 33.0-45.0 MEAN CELL VOLUME (test code=MCV) 84.2 fL 81.0-99.0 MEAN CELL HGB (test code=MCH) 27.9 pg 27.0-33.0 MEAN CELL HGB CONCETRATION (test code=MCHC) 33.2 g/dL 33.0-37.0 RED CELL DISTRIBUTION WIDTH CV (test code=RDW) 12.2 % 11.5-14.5 RED CELL DISTRIBUTION WIDTH SD (test code=RDW-SD) 37.0 fL 37.0-54.0 PLATELET COUNT (test code=PLT) 474 x10 3/uL 150-400 MEAN PLATELET VOLUME (test code=MPV) 10.0 fL 7.0-9.0 NEUTROPHIL % (test code=NT%) 70.7 % 56.0-77.0 IMMATURE GRANULOCYTE % (test code=IG%) 0.3 % 0.0-2.0 LYMPHOCYTE % (test code=LY%) 20.4 % 14.0-32.0 MONOCYTE % (test code=MO%) 6.3 % 4.8-9.0 EOSINOPHIL % (test code=EO%) 1.9 % 0.3-3.7 BASOPHIL % (test code=BA%) 0.4 % 0.0-2.0 NUCLEATED RBC % (test code=NRBC%) 0.0 % 0-0 NEUTROPHIL # (test code=NT#) 7.00 x10 3/uL 2.0-7.6 IMMATURE GRANULOCYTE # (test code=IG#) 0.03 x10 3/uL 0.00-0.03 LYMPHOCYTE # (test code=LY#) 2.02 x10 3/uL 1.0-3.8 MONOCYTE # (test code=MO#) 0.62 x10 3/uL 0.1-0.8 EOSINOPHIL # (test code=EO#) 0.19 x10 3/uL 0.0-0.2 BASOPHIL # (test code=BA#) 0.04 x10 3/uL 0.0-0.2 NUCLEATED RBC # (test code=NRBC#) 0.00 x10 3/uL 0.0-0.1 MANUAL DIFF REQUIRED (test code=MDIFF) NO TROPONIN-I [id number] 17:12:00* Test Item Value Reference Range Comments TROPONIN-I RAPID (test code=TROPIRAP) 0.00 ng/mL 0.00-0.08 Performed by certified centrifuge separator operator at [facility] Negative: <=0.08 Positive: >=0.09An elevated troponin value alone is not sufficient todiagnose a myocardial infarction. Rather, the patient sclinical presentation (history, physical exam) and ECGshould be used in conjunction with troponin in thediagnostic evaluation of suspected myocardial infarction. Aserial sampling protocol is recommended to facilitate the identification of temporal changes in troponin levels characteristic of [place]. BASIC METABOLIC [id number] 11:47:00* Test Item Value Reference Range Comments SODIUM (test code=NA) 135 mEq/L 134-147 POTASSIUM (test code=K) 3.6 mEq/L 3.4-5.0 CHLORIDE (test code=CL) 104 mEq/L 100-108 CARBON DIOXIDE (test code=CO2) 28 mEq/L 21-33 ANION GAP (test code=GAP) 7 0-20 GLUCOSE (test code=GLU) 192 mg/dL 70-110 BLOOD UREA NITROGEN (test code=BUN) 8 mg/dL 7-18 GLOMERULAR FILTRATION RATE (test code=GFR) 110.2 95-105 Units of measure=ml/min/1.73 m2 CREATININE (test code=CREAT) 0.6 mg/dL 0.6-1.3 CALCIUM (test code=CA) 9.3 mg/dL 8.0-10.5 CBC W/AUTO [id number] 11:35:00* Test Item Value Reference Range Comments WHITE BLOOD CELL (test code=WBC) 8.08 x10 3/uL 4.5-11.0 RED BLOOD CELL (test code=RBC) 4.82 x10 6/uL 3.54-5.02 HEMOGLOBIN (test code=HGB) 13.4 g/dL 11.0-15.0 HEMATOCRIT (test code=HCT) 41.0 % 33.0-45.0 MEAN CELL VOLUME (test code=MCV) 85.1 fL 81.0-99.0 MEAN CELL HGB (test code=MCH) 27.8 pg 27.0-33.0 MEAN CELL HGB CONCETRATION (test code=MCHC) 32.7 g/dL 33.0-37.0 RED CELL DISTRIBUTION WIDTH CV (test code=RDW) 12.9 % 11.5-14.5 RED CELL DISTRIBUTION WIDTH SD (test code=RDW-SD) 39.0 fL 37.0-54.0 PLATELET COUNT (test code=PLT) 365 x10 3/uL 150-400 MEAN PLATELET VOLUME (test code=MPV) 10.0 fL 7.0-9.0 NEUTROPHIL % (test code=NT%) 69.6 % 56.0-77.0 IMMATURE GRANULOCYTE % (test code=IG%) 0.2 % 0.0-2.0 LYMPHOCYTE % (test code=LY%) 21.8 % 14.0-32.0 MONOCYTE % (test code=MO%) 5.4 % 4.8-9.0 EOSINOPHIL % (test code=EO%) 2.5 % 0.3-3.7 BASOPHIL % (test code=BA%) 0.5 % 0.0-2.0 NUCLEATED RBC % (test code=NRBC%) 0.0 % 0-0 NEUTROPHIL # (test code=NT#) 5.62 x10 3/uL 2.0-7.6 IMMATURE GRANULOCYTE # (test code=IG#) 0.02 x10 3/uL 0.00-0.03 LYMPHOCYTE # (test code=LY#) 1.76 x10 3/uL 1.0-3.8 MONOCYTE # (test code=MO#) 0.44 x10 3/uL 0.1-0.8 EOSINOPHIL # (test code=EO#) 0.20 x10 3/uL 0.0-0.2 BASOPHIL # (test code=BA#) 0.04 x10 3/uL 0.0-0.2 NUCLEATED RBC # (test code=NRBC#) 0.00 x10 3/uL 0.0-0.1 MANUAL DIFF REQUIRED (test code=MDIFF) NO - CT HEAD/BRAIN W/O [id number] 11:28:00 Name: AUSTYN MERA [facility] : 1975 Age/S: 43 / F [address] [place] [address] Unit #: [id number] Loc: [place] [address] Phys: Charles Stanton Acct: [id number] Dis Date: Status: REG ER PHONE #: [phone] Exam Date: 01/18/2019 1100 FAX #: [phone] Reason: hx of aneurysm, headache, +N/V EXAMS: CPT CODE: [id number] CT HEAD/BRAIN W/O CONT 00444 STUDY: - CT HEAD/BRAIN W/O CONT 01/18/2019 10:48 AM Ordering Physician: BALWINDER Jones Patient Name: AUSTYN MERA MR: [id number] : 1975; Age: 43 years y/o Female Clinical Indication: hx of aneurysm, headache, +N/V Comparison: CT August 08, 2018, November 02, 2017 TECHNIQUE: Multiple contiguous transaxial noncontrast CT images were obtained through the head. Coronal and sagittal reformatted images were prepared. DOSE: CT imaging performed at this location utilizes radiation dose optimization technique which includes one or more of the followin) Automated exposure control; 2) Adjustment of the mA and/or kV according to patient's size; 3) Use of iterative reconstruction techniques. DLP (mGy-cm): 472 FINDINGS: The brain volume is appropriate for age. No evidence of acute intracranial hemorrhage, mass lesion, mass effect, midline shift, or extra-axial fluid collection. The lateral ventricles, third ventricle, fourth ventricle, and basilar cisterns are appropriate for degree of atrophy present. The visualized por tions of the paranasal sinuses are clear. Mastoids are clear. IMPRESSION: No acute intracrani al abnormality. CTA can performed for further evaluation of prior noted left paraclinoid ICA aneurysm. SL: [id number] PAGE 1 Signed Report (CONTINUED) Name: AUSTYN MERA [facility] : 1975 Age/S: 43 / F [address] [place] [address] Unit #: [id number] Loc: [place] [address] Phys: Emile Stanton Acct: [id number] Dis Date: Status: REG ER PHONE #: Exam Date: 01/18/2019 1100 FAX #: Reason: hx of aneurysm, headache, +N/V EXAMS: CPT CODE: [id number] CT HEAD/BRAIN W/O CONT 33000 <Continued> at 1128 Reported and signed by: Bernard Wasserman D.O. CC: Charles BRITT; Laith Garcia MD Technologist:Danuta Rosenberg, RT(R) CTDI: DLP: Trnscb Date/Time: 01/18/2019 (1128) [email or web address] Orig Print D/T: S: 01/18/2019 (1138) PAGE 2 Signed Report [id number] 11:04:00* Test Item Value Reference Range Comments GLUMARITZA (test code=GLUMARITZA) 185 MG/DL 70-110 Performed by certified centrifuge separator operator at [facility] - CT ANGIO [id number] 03:44:00 Name: AUSTYN MERA [facility] : 1975 Age/S: 42 / F [address] [place] [address] Unit #: [id number] Loc: [place] [address] Phys: Deven Reece NP Acct: [id number] Dis Date: Status: DEP ER PHONE #: [phone] Exam Date: 08/08/20188 FAX #: [phone] Reason: Headache, L sided, hx of incidental ICA aneurys EXAMS: CPT CODE: [id number] CT ANGIO HEAD 87646 EXAM: BRAIN CTA WITH CONTRAST INDICATION: Headache. Left-sided. History of incidental ICA aneurysm. COMPARISON: CTA head 11/02/2017 TECHNIQUE Rapid acquisition spiral images were obtained between the skull base and cranial vertex during intravenous contrast infusion to reconstruct axial images and angiographic 3D maximum intensity projections (MIP). This exam was performed according to our departmental dose optimization program which includes automated exposure control, adjustment of the mA and/or kV according to patient size and/or use of iterative reconstruction technique. FINDINGS: CT head angiogram: No high-grade intracranial arterial occlusion or flow- limiting stenosis. A 3 mm superiorly projecting left paraclinoid ICA aneurysm is redemonstrated, similar to the comparison study given difference in technique and slice selection. No vascular malformation. Please note this contrast-enhanced study is limited in evaluation for subtle intracranial hemorrhage. Subtle suba rachnoid hemorrhage could be obscured given contrast. No hydrocephalus, m idline shift or overt large hemorrhage. IMPRESSION : A 3 mm superiorly projecting left paraclinoid ICA aneurysm i s redemonstrated, similar to the comparison study given difference in technique and slice selection. PAGE 1 Signed Re port (CONTINUED) Name: AUSTYN MERA [facility] : 1975 Age/S: 42 / F [address] [place] [address] Unit #: [id number] Loc: MATHEUS Reed 79 598 Phys: Deven Reece NP Acct: [id number] Dis Date: Status: DEP ER PHONE #: [phone] Exam Date: 08/08/2018247 FAX #: [phone] Reason: Headache, L sided, hx of in cidental ICA aneurys EXAMS: CP T CODE: [id number] CT ANGIO HEAD 10336 <Continued> Please note this contrast-enhanced study is limited in evaluation for subtle intracranial hemorrhage. No hydrocephalus, midline shift or overt large hemorrhage. Short-term noncontrast follow-up imaging is recommended as clinically warranted. at 0344 Reported and signed by: Jessica Le M.D. CC: Deven Reece NP Technologist:RT Almaz(R) CTDI: DLP: Trnscb Date/Time: 08/08/2018 (0344) [email or web address] Orig Print D/T: S: 08/08/2018 (0510) CTDI: DLP: PAGE 2 Signed Report BASIC METABOLIC [id number] 02:24:00* Test Item Value Reference Range Comments SODIUM (test code=NA) 140 mEq/L 134-147 POTASSIUM (test code=K) 3.7 mEq/L 3.4-5.0 CHLORIDE (test code=CL) 103 mEq/L 100-108 CARBON DIOXIDE (test code=CO2) 25 mEq/L 21-33 ANION GAP (test code=GAP) 16 0-20 GLUCOSE (test code=GLU) 256 mg/dL 70-110 BLOOD UREA NITROGEN (test code=BUN) 10 mg/dL 7-18 GLOMERULAR FILTRATION RATE (test code=GFR) 92.7 95-105 Units of measure=ml/min/1.73 m2 CREATININE (test code=CREAT) 0.7 mg/dL 0.6-1.3 CALCIUM (test code=CA) 9.2 mg/dL 8.0-10.5 HEPATIC FUNCTION [id number] 02:24:00* Test Item Value Reference Range Comments TOTAL PROTEIN (test code=PROT) 8.1 g/dL 6.4-8.2 ALBUMIN (test code=ALB) 4.10 g/dL 3.4-5.0 BILIRUBIN TOTAL (test code=BILT) 0.30 mg/dL 0.0-1.0 BILIRUBIN DIRECT (test code=BILD) 0.10 MG/DL 0.0-0.30 BILIRUBIN INDIRECT (test code=BILIND) 0.20 MG/DL SGOT/AST (test code=AST) 20 IUnit/L 15-37 SGPT/ALT (test code=ALT) 31 IUnit/L 15-65 ALKALINE PHOSPHATASE TOTAL (test code=ALKP) 123 IUnit/L 20-125 BASIC METABOLIC [id number] 02:21:00* Test Item Value Reference Range Comments SODIUM (test code=NA) 140 mEq/L 134-147 POTASSIUM (test code=K) 3.7 mEq/L 3.4-5.0 CHLORIDE (test code=CL) 103 mEq/L 100-108 CARBON DIOXIDE (test code=CO2) 25 mEq/L 21-33 ANION GAP (test code=GAP) 16 0-20 GLUCOSE (test code=GLU) 256 mg/dL 70-110 BLOOD UREA NITROGEN (test code=BUN) 10 mg/dL 7-18 GLOMERULAR FILTRATION RATE (test code=GFR) 92.7 95-105 Units of measure=ml/min/1.73 m2 CREATININE (test code=CREAT) 0.7 mg/dL 0.6-1.3 CALCIUM (test code=CA) 9.2 mg/dL 8.0-10.5 HEPATIC FUNCTION [id number] 02:21:00* Test Item Value Reference Range Comments TOTAL PROTEIN (test code=PROT) g/dL 6.4-8.2 ALBUMIN (test code=ALB) 4.10 g/dL 3.4-5.0 BILIRUBIN TOTAL (test code=BILT) mg/dL 0.0-1.0 BILIRUBIN DIRECT (test code=BILD) 0.10 MG/DL 0.0-0.30 SGOT/AST (test code=AST) 20 IUnit/L 15-37 SGPT/ALT (test code=ALT) 31 IUnit/L 15-65 ALKALINE PHOSPHATASE TOTAL (test code=ALKP) IUnit/L 20-125 CBC W/AUTO [id number] 02:09:00* Test Item Value Reference Range Comments WHITE BLOOD CELL (test code=WBC) 10.61 x10 3/uL 4.5-11.0 RED BLOOD CELL (test code=RBC) 4.99 x10 6/uL 3.54-5.02 HEMOGLOBIN (test code=HGB) 13.7 g/dL 11.0-15.0 HEMATOCRIT (test code=HCT) 41.2 % 33.0-45.0 MEAN CELL VOLUME (test code=MCV) 82.6 fL 81.0-99.0 MEAN CELL HGB (test code=MCH) 27.5 pg 27.0-33.0 MEAN CELL HGB CONCETRATION (test code=MCHC) 33.3 g/dL 33.0-37.0 RED CELL DISTRIBUTION WIDTH CV (test code=RDW) 12.0 % 11.5-14.5 RED CELL DISTRIBUTION WIDTH SD (test code=RDW-SD) 36.3 fL 37.0-54.0 PLATELET COUNT (test code=PLT) 441 x10 3/uL 150-400 MEAN PLATELET VOLUME (test code=MPV) 10.0 fL 7.0-9.0 NEUTROPHIL % (test code=NT%) 63.5 % 56.0-77.0 IMMATURE GRANULOCYTE % (test code=IG%) 0.4 % 0.0-2.0 LYMPHOCYTE % (test code=LY%) 26.9 % 14.0-32.0 MONOCYTE % (test code=MO%) 6.0 % 4.8-9.0 EOSINOPHIL % (test code=EO%) 2.6 % 0.3-3.7 BASOPHIL % (test code=BA%) 0.6 % 0.0-2.0 NUCLEATED RBC % (test code=NRBC%) 0.0 % 0-0 NEUTROPHIL # (test code=NT#) 6.74 x10 3/uL 2.0-7.6 IMMATURE GRANULOCYTE # (test code=IG#) 0.04 x10 3/uL 0.00-0.03 LYMPHOCYTE # (test code=LY#) 2.85 x10 3/uL 1.0-3.8 MONOCYTE # (test code=MO#) 0.64 x10 3/uL 0.1-0.8 EOSINOPHIL # (test code=EO#) 0.28 x10 3/uL 0.0-0.2 BASOPHIL # (test code=BA#) 0.06 x10 3/uL 0.0-0.2 NUCLEATED RBC # (test code=NRBC#) 0.00 x10 3/uL 0.0-0.1 MANUAL DIFF REQUIRED (test code=MDIFF) NO
[2019-05-24 09:38] VITALS: BP 118/78
--- NOTE | 2019-05-24 17:04 | Operative Report ---
DATE OF PROCEDURE: 05/24/2019 SURGEON: Donovan Marquez MD PROCEDURES: EGD with polypectomy biopsies and esophageal dilatation and colonoscopy with polypectomy. INDICATIONS FOR EGD: Dysphagia, bloating. INDICATIONS FOR COLONOSCOPY: Surveillance colonoscopy, personal history of colon polyps. MEDICATIONS: The patient was done under MAC. Please see anesthesiologist's note. DESCRIPTION OF PROCEDURE: With the patient in left lateral decubitus position, flexible fiberoptic Olympus gastroscope was introduced into the esophagus under direct visualization without any difficulty. There was some patchy erythema noted in the distal esophagus. A minute nodule was noted at the GE junction that was biopsied. There was a mild stricture noted at the GE junction that was dilated to size 54-[place] Wild. The scope was then advanced with ease into the stomach and mucosa overlying the antrum and the body revealed some patchy erythema and [id number] edema, and biopsies were obtained and sent to stain for H pylori. Minute hyperplastic-appearing polyps were noted in the body of the stomach and somewhat partially excised with the cold biopsy forceps. The pylorus was of normal contour and shape was intubated with ease and the scope was advanced all the way to the second portion into the duodenum. Biopsies were obtained from the proximal second portion and duodenal bulb and to rule out sprue. The scope was then withdrawn back into the stomach and retroflexed mucosa overlying the fundus and cardia appeared to be within normal limits. The scope was then straightened out. The stomach was decompressed. The scope was subsequently withdrawn. The patient tolerated the procedure well. IMPRESSION: 1. Distal esophagitis. 2. Minute nodule, GE junction biopsied. 3. Esophageal stricture, GE junction dilated to size 54-[place] Wild. 4. Gastric polyps, some partially excised with the cold biopsy forceps. 5. Gastritis, biopsied. Biopsies sent to stain for Helicobacter pylori. 6. Rule out sprue. PLAN: Follow up histology. Initiate Protonix 40 mg one p.o. q.a.m. a.c. DESCRIPTION OF PROCEDURE: The patient was then turned around. After adequate lubrication of the anal canal, a flexible fiberoptic Olympus colonoscope was inserted into the rectum with ease and advanced all the way to the cecum. It was then withdrawn slowly. Mucosa overlying the cecum appeared to be within normal limits. One polyp was removed per snare electrocautery from the ascending colon. The transverse appeared to be within normal limits. One polyp was hot biopsied from the proximal descending colon. One polyp was removed per snare electrocautery from the sigmoid colon. The rectum appeared to be within normal limits. The scope was then retroflexed into the distal rectum. Small internal hemorrhoids were noted, none of which was actively bleeding. The scope was then straightened out, it was subsequently withdrawn. The patient tolerated the procedure well. IMPRESSION: 1. Ascending colon polyp removed per snare electrocautery. 2. Descending colon polyp, hot biopsied. 3. Sigmoid colon polyp, removed per snare electrocautery. 4. Internal hemorrhoids, none actively bleeding. PLAN: Followup histology. Initiate high-fiber, low-fat diet. Initiate high-fiber supplement. The patient might benefit from a followup colonoscopy in [address] [facility] [place] /[id number] cc: Sabiha Gallardo MD
== END | disposition home or self-care (01) ==
LOC: OR 06:10
PROVIDERS: ATTEND Internal Medicine Gastroenterology
DX: K29.70 Gastritis, unspecified, without bleeding (principal); D12.2 Benign neoplasm of ascending colon; D12.5 Benign neoplasm of sigmoid colon; K31.7 Polyp of stomach and duodenum; K22.2 Esophageal obstruction; K20.9 Esophagitis, unspecified; K22.8 Other specified diseases of esophagus; K64.8 Other hemorrhoids; D72.820 Lymphocytosis (symptomatic); E11.9 Type 2 diabetes mellitus without complications; K74.60 Unspecified cirrhosis of liver; K44.9 Diaphragmatic hernia without obstruction or gangrene; I72.0 Aneurysm of carotid artery; R43.8 Other disturbances of smell and taste; R03.0 Elevated blood-pressure reading, without diagnosis of hypertension; Z01.810 Encounter for preprocedural cardiovascular examination; Z01.812 Encounter for preprocedural laboratory examination; Z79.84 Long term (current) use of oral hypoglycemic drugs; Z68.33 Body mass index [BMI] 33.0-33.9, adult; Z87.891 Personal history of nicotine dependence
CPT/HCPCS: 36415 ×2; 43239; 43450; 45384; 45385; 80053; 81025; 82948; 85025; 85610; 85730; 93005; J1610; J2001; J2250; J2704; J3010; 45378